=== PATIENT | female | born 1985 | race Caucasian/White ===

== ENCOUNTER 2016-11-08 09:20 | Day surgery (SDC) | payer OTHER ==
[2016-11-08 10:29] VITALS: TEMP 97.2
[2016-11-08 10:57] VITALS: BP 122/85; PULSE 84; RESP 20; O2SAT 100
== END 2016-11-08 11:10 | disposition home or self-care (01) | DRG 951 ==
LOC: SURG 09:20
PROVIDERS: ATTEND Surgery
DX: Z12.11 Encounter for screening for malignant neoplasm of colon (principal); K63.5 Polyp of colon; Z80.0 Family history of malignant neoplasm of digestive organs; Z83.71 Family history of colonic polyps
CPT/HCPCS: 99001; J2001; J2704

== ENCOUNTER 2017-09-07 18:52 | Inpatient (IN) | payer OTHER ==
[2017-09-07] MEDS: SODIUM CHLORIDE 0.9% FLUSH 10 ML SOL IV SCH (19:00)
[2017-09-07] MEDS: LACTATED RINGERS 1,000 ML IV SCH ×3 (19:12→21:00)
[2017-09-07] MEDS ORDERED: LACTATED RINGERS 1,000 ML IV PRN (19:12)
[2017-09-07] MEDS ORDERED: DIPHENHYDRAMINE 50 MG/ML SOL IV PRN (19:13)
[2017-09-07] MEDS ORDERED: NALOXONE HYDROCHLORIDE 0.4 MG/ML SOL IV PRN (19:13)
[2017-09-07] MEDS ORDERED: SODIUM CHLORIDE 0.9% FLUSH 10 ML SOL IV PRN (19:13)
[2017-09-07] MEDS ORDERED: NALBUPHINE HCL 20 MG/ML SOL IV PRN (19:13)
[2017-09-07] MEDS ORDERED: CARBOPROST 250 MCG/ML SOL IM PRN (19:13)
[2017-09-07] MEDS ORDERED: OXYTOCIN 10000 MU/ML SOL IM PRN (19:13)
[2017-09-07] MEDS ORDERED: MEPIVACAINE HCL 1% MPF 30 ML SOL INFIL PRN (19:13)
[2017-09-07] MEDS ORDERED: METHYLERGONOVINE MALEATE 0.2 MG/ML SOL IM PRN (19:13)
[2017-09-07] MEDS ORDERED: FENTANYL 100MCG/2ML SOL IV PRN (19:13)
[2017-09-07] MEDS ORDERED: EPHEDRINE SULFATE 50 MG/ML SOL IV PRN (19:13)
[2017-09-07 19:23] LABS: BASOPHILS % (AUTO) 0 % (0-3); EOSINOPHILS % (AUTO) 1 % (0-9); HEMATOCRIT 36 % (35-47); MEAN CORPUSCULAR HGB CONC 34.5 gm/dl (32.0-36.0); MEAN CORPUSCULAR VOLUME 86 fL (81-99); MONOCYTES % (AUTO) 6.5 % (0-12); NEUTROPHILS % (AUTO) 75.3 % (37-80)
[2017-09-07] MEDS ORDERED: FENTANYL 250 MCG/ 5ML SOL ONE (20:17)
[2017-09-07] MEDS ORDERED: LIDOCAINE HCL 2% MPF SOL ONE (20:17)
[2017-09-07] MEDS ORDERED: ROPIVACAINE HYDROCHLORIDE 5 MG/ML SOL ONE (20:17)
[2017-09-08] MEDS ORDERED: FLEET ENEMA PR PRN (02:03)
[2017-09-08] MEDS ORDERED: METHYLERGONOVINE MALEATE 0.2 MG TAB PO PRN (02:03)
[2017-09-08] MEDS ORDERED: WITCH HAZEL 1 EA PAD TOP PRN (02:03)
[2017-09-08] MEDS ORDERED: IBUPROFEN 600 MG TAB PO PRN (02:03)
[2017-09-08] MEDS ORDERED: TEMAZEPAM 15MG 15 MG CAP PO PRN (02:03)
[2017-09-08] MEDS ORDERED: BENZOCAINE/MENTHOL 1 SPR TOP PRN (02:03)
[2017-09-08] MEDS ORDERED: APAP/HYDROCODONE 325/5 TAB PO PRN (02:03)
[2017-09-08] MEDS ORDERED: BISACODYL 10 MG SUP PR PRN (02:03)
[2017-09-08] MEDS: LACTATED RINGERS 1,000 ML IV SCH (03:57)
[2017-09-08] MEDS ORDERED: FENTANYL 100MCG/2ML SOL ONE (05:55)
[2017-09-08] MEDS ORDERED: BUPIVACAINE HCL 0.5% MPF 10 ML SOL ONE ×2 (06:00)
[2017-09-08] MEDS ORDERED: LIDOCAINE HCL 2% MPF SOL ONE (06:01)
[2017-09-08] MEDS ORDERED: MIDAZOLAM 2 MG/2 ML SOL ONE (06:04)
[2017-09-08] MEDS: SODIUM CHLORIDE 0.9% FLUSH 10 ML SOL IV SCH ×2 (06:11→11:29)
[2017-09-08] MEDS ORDERED: LIDOCAINE HCL 1% MPF SOL ONE (06:32)
[2017-09-08] MEDS ORDERED: PROPOFOL 10 MG/ML EMU IV ONE (06:36)
[2017-09-08] MEDS ORDERED: FOLIC ACID PO SCH (12:00)
[2017-09-08] MEDS ORDERED: PNV95 PO SCH (12:00)
[2017-09-08] MEDS ORDERED: [UNRECOGNIZED DRUG - OTHER] PO SCH (12:00)
[2017-09-08] MEDS ORDERED: IRON FUM PO SCH (12:00)
[2017-09-08] MEDS: DOCUSATE SODIUM 100 MG SGL PO SCH ×2 (12:54→23:11)
[2017-09-08] MEDS ORDERED: MULTIVITAMIN2 1 EA TAB PO SCH (14:30)
[2017-09-08] MEDS ORDERED: FOLIC ACID 1 MG TAB PO SCH (14:30)
[2017-09-09 03:31] VITALS: RESP 20; TEMP 97; O2SAT 98
[2017-09-09] MEDS ORDERED: DOCUSATE SODIUM 100 MG SGL ONE (09:22)
[2017-09-09] MEDS: DOCUSATE SODIUM 100 MG SGL PO SCH (09:24)
[2017-09-09 10:21] VITALS: BP 130/80; PULSE 91
== END 2017-09-09 11:20 | disposition home or self-care (01) | DRG 767 ==
LOC: OBSVTOIN 18:52 → OB 18:52
PROVIDERS: ADMIT Family Medicine; ATTEND Family Medicine
PROC: 10E0XZZ Delivery of Products of Conception, External Approach (ICD-10-PCS; principal; 2017-09-07)
PROC: 0KQM0ZZ Repair Perineum Muscle, Open Approach (ICD-10-PCS; 2017-09-07)
PROC: 0UB70ZZ Excision of Bilateral Fallopian Tubes, Open Approach (ICD-10-PCS; 2017-09-08)
DX: O70.1 Second degree perineal laceration during delivery (principal); Z37.0 Single live birth; Z30.2 Encounter for sterilization; Z3A.40 40 weeks gestation of pregnancy
CPT/HCPCS: 36415; 59025; 85018; 85025; 99001; J0670; J2250; J2795; J3010; J2001; J2704